=== PATIENT | male | born 2000 | race Caucasian/White ===

== ENCOUNTER 2022-11-02 00:11 | Emergency (ER) | payer SELFPAY ==
[~2022-11-02] VITALS: Ht 180.3 cm; Wt 83.9 kg
[2022-11-02 00:20] VITALS: O2SAT 97
[2022-11-02] MEDS ORDERED: FAMOTIDINE 20 MG TABLET ONE (02:27)
[2022-11-02] MEDS ORDERED: FAMOTIDINE 20 MG TABLET PO ONE (02:30)
[2022-11-02] MEDS ORDERED: OMEP40CA21 PO (03:13)
== END 2022-11-02 03:24 | disposition home or self-care (01) ==
LOC: ER 00:17
DX: R07.89 Other chest pain (principal); K21.9 Gastro-esophageal reflux disease without esophagitis; R06.81 Apnea, not elsewhere classified; F41.8 Other specified anxiety disorders; F17.210 Nicotine dependence, cigarettes, uncomplicated; Z79.899 Other long term (current) drug therapy
CPT/HCPCS: 71046